=== PATIENT | female | born 2000 | race Caucasian/White ===

== ENCOUNTER 2022-07-26 08:48 | Emergency (ER) | payer MEDICAID ==
--- NOTE | 2022-07-26 09:07 | NUR ---
Pt presents to the ER bib self from home. CC vaginal spotting. Pt denies bleeding, pt states early in pregnance LMP 06/25/22, 1 full term child. Pt denies chest pain, Denies SOB, denies uncontrolled bleeding, skin intact, pt is aaox4 with bilateral area cleaner appears nourished.
[2022-07-26 09:10] VITALS: BP_SYST 131
--- NOTE | 2022-07-26 09:50 | NUR ---
ER at bedside examining patient.
[2022-07-26 10:09] LABS: BASOPHILS # (AUTO) 0.1 K/uL (0.0-0.2); EOSINOPHILS # (AUTO) 0.1 K/uL (0.0-0.4); EOSINOPHILS % (AUTO) 2.1 % (0.0-4.0); HEMATOCRIT 40.6 % (36-48); HEMOGLOBIN 14.2 g/dL (12.0-16.0); LYMPHOCYTES # (AUTO) 1.7 K/uL (1.0-5.5); LYMPHOCYTES % (AUTO) 25.3 % (20.5-51.5); MEAN CORPUSCULAR HEMOGLOBIN 30 pg (27-31); MEAN CORPUSCULAR HGB CONC 35 % (32-36); MEAN CORPUSCULAR VOLUME 85 fL (79.0-98.0); MONOCYTES # (AUTO) 0.4 K/uL (0.0-1.0); MONOCYTES % (AUTO) 6.3 % (1.7-9.3); NEUTROPHILS # (AUTO) 4.4 K/uL (1.8-7.7); NEUTROPHILS % (AUTO) 65.3 % (40.0-70.0); PLATELET COUNT (AUTO) 198 K/uL (130-430); RED BLOOD CELL COUNT(AUTO) 4.79 MIL/uL (4.2-6.2); RED CELL DISTRIBUTION WIDTH 12.7 % (9.0-15.0); WHITE BLOOD COUNT (AUTO) 6.7 K/uL (4.8-10.8)
--- NOTE | 2022-07-26 10:57 | NUR ---
Patient given written and verbal discharge instructions and verbalizes understanding. ER MD discussed with patient the results and treatment provided. Patient in stable condition. ID arm band removed. Opportunity for questions provided and answered. Medication side effect fact sheet provided.
[2022-07-26 10:58] VITALS: BP_SYST 131
== END 2022-07-26 10:58 | disposition home or self-care (01) ==
LOC: SED 08:48
DX: O20.0 Threatened abortion (principal); Z3A.01 Less than 8 weeks gestation of pregnancy
CPT/HCPCS: 36415; 81025; 84702; 85025; 86901; 99283